=== PATIENT | male | born 1965 | race Caucasian/White ===

== ENCOUNTER 2019-10-19 06:04 | Outpatient (CLI) | payer OTHER, SELFPAY ==
[2019-10-19 16:38] LABS: SARS-CoV-2 RNA PCR Negative
== END 2019-10-19 06:05 | disposition home or self-care (01) ==
LOC: ANHCOVIDDT 06:05
PROVIDERS: PCP Internal Medicine; Visit Provider Internal Medicine Gastroenterology
DX: Z01.818 Encounter for other preprocedural examination (principal); Z11.59 Encounter for screening for other viral diseases
CPT/HCPCS: 87635; C9803; U0003

== ENCOUNTER 2019-10-21 00:25 | Day surgery (SDC) | payer OTHER, SELFPAY ==
[2019-10-17 12:44] VITALS: BMI 22.6
[2019-10-21 06:10] VITALS: BP 118/75; PULSE 98; RESP 16; TEMP 36.8; O2SAT 96
[2019-10-21] MEDS: LACTATED RINGERS 1,000 ML 150 ML IV CONT (06:46)
--- NOTE | 2019-10-21 07:00 | WPDANESEPPF ---
Anes - Initial Pre Proc Eval Procedure: Operation Date: 10/21/19 07:30 Proposed Procedures p Screening Colonoscopy - Adonay Fulton MD Date/Time: 10/21/19 07:00 Surgeon: Adonay Fulton MD Pre Op Diagnosis: Neoplasm Screening Patient Data Age: 53 Gender: M Height: 6 ft 2 in Weight: 77.3 kg Last Vital Signs Temp 36.8 C 10/21/19 06:10 Pulse 98 10/21/19 06:10 Resp 16 10/21/19 06:10 BP 118/75 10/21/19 06:10 Pulse Ox 96 10/21/19 06:10 Allergies Allergy/AdvReac Type Severity Reaction Status Date / Time No Known Allergies Allergy Verified 10/21/19 06:19 Home Medications Medication Instructions Recorded Confirmed Type antiarthritic combination no.2 900 900 mg PO DAILY 06/24/19 10/21/19 History mg tablet flaxseed oil 1,000 mg capsule 1,000 mg PO DAILY 06/24/19 10/21/19 History multivitamin 1 tablet PO DAILY 06/24/19 10/21/19 History plant stanol luz 450 mg tablet 450 mg PO DAILY 06/27/19 10/21/19 History Patient hx anesthesia problems: none Family hx anesthesia problems: none PMFSH Past Medical History Medical History Anxiety Family History Family History Father Hypertension Mother Patient's mother is in good health Social History Social History Smoking status: Never smoker Second hand tobacco smoke exposure: No Alcohol intake: never Anes - Eval Final PreProcedure Day of Procedure 10/21/19 07:00 Patient weight: normal Heart: regular rate and rhythm Lungs: clear to auscultation Airway: Mallampati scale class 1 Neurological: alert and oriented Last oral intake: >/= 8 hours ASA classification: II Emergent: no Anesthetic plan: proceed Anesthesia type and monitoring: general GIVS and standard monitoring Informed Consent: The patient's anesthetic plan and its attendant risks and benefits were discussed with the patient/family/POA. Questions were solicited and answers provided to the satisfaction of the patient/family/POA.
--- NOTE | 2019-10-21 07:21 | PM.HPGS ---
History of Present Illness History of Present Illness Consent: Risks, benefits, and alternatives have been discussed and questions answered. Patient agrees to proceed with procedure. Chief complaint: Neoplasm Screening Narrative: García Rivera is a 53 year old male Who was found have a large sessile polyp of the ascending colon last year. It was [place] that it was incompletely removed in he returns for follow-up. FOR[facility], [facility] Past Medical History Medical History Anxiety Family History Family History Father Hypertension Mother Patient's mother is in good health Social History Social History Smoking status: Never smoker Second hand tobacco smoke exposure: No Alcohol intake: never Meds Home Medications and Allergies Home Medications Medication Instructions Recorded Confirmed Type antiarthritic combination no.2 900 900 mg PO DAILY 06/24/19 10/21/19 History mg tablet flaxseed oil 1,000 mg capsule 1,000 mg PO DAILY 06/24/19 10/21/19 History multivitamin 1 tablet PO DAILY 06/24/19 10/21/19 History plant stanol luz 450 mg tablet 450 mg PO DAILY 06/27/19 10/21/19 History Allergies Allergy/AdvReac Type Severity Reaction Status Date / Time No Known Allergies Allergy Verified 10/21/19 06:19 Vital Signs Vital Signs - 24 hr 10/21/19 06:10 Temperature 36.8 C Pulse Rate 98 Respiratory Rate 16 Blood Pressure 118/75 Pulse Oximetry 96 Exam Resp: Auscultation: clear to auscultation bilaterally Cardio: Rate: regular rate Rhythm: regular rhythm GI: GI Palp: Yes Soft to palpation and No Tenderness to palpation present (GI) Assessment and Plan Assessment and plan (1) Colon cancer screening: Code(s): Z12.11 - Encounter for screening for malignant neoplasm of colon Status: Acute Assessment and Plan: Colonoscopy with possible biopsy or polypectomy or cautery or injection of substances.
[2019-10-21 07:47] VITALS: BP 111/69; PULSE 90; RESP 16; O2SAT 98
[2019-10-21 07:57] VITALS: BP 108/66; PULSE 82; RESP 18; O2SAT 98
[2019-10-21 08:07] VITALS: BP 110/70; PULSE 84; RESP 16; O2SAT 99
== END 2019-10-21 08:15 | disposition home or self-care (01) ==
PROVIDERS: PCP Internal Medicine; Visit Provider Internal Medicine Gastroenterology
PROC: 0DJD8ZZ Inspection of Lower Intestinal Tract, Via Natural or Artificial Opening Endoscopic (ICD-10-PCS; CPT 45378; principal; 2019-10-21 07:30)
DX: Z12.11 Encounter for screening for malignant neoplasm of colon (principal); K57.30 Diverticulosis of large intestine without perforation or abscess without bleeding
CPT/HCPCS: 45378; 87635; C9803; J2704; J7120; U0003

== ENCOUNTER 2024-02-09 19:53 | Emergency (ER) | payer BC, SELFPAY ==
--- NOTE | ~2024-02-09 | CT_ITS ---
EXAMINATION: CT abdomen pelvis w con DATE: 02/09/2024 21:51 INDICATION: Umbilical and epigastric abdominal pain. Nausea and vomiting. TECHNIQUE: Computed tomography (CT) of the abdomen and pelvis was performed with 100 mL Omnipaque 350 intravenous contrast. Automated exposure control and iterative reconstruction technique were employe d. The dose-length product was 505.64 mGy-cm. COMPARISON: None. FINDINGS: The visualized portions of the lung bases demonstrate mild atelectasis. No pleural effusion . The heart size is normal. No pericardial effusion. There is a small sliding hiatal hernia. There is a 5 mm cyst in the liver. The spleen is normal. There is a gallstone in the gallbladder, which is no rmal in size. The pancreas, adrenal glands, and left kidney are normal. There is focal cortical thinn ing of right kidney. The prostate is mildly enlarged. There is diverticulosis of the colon without ev idence of diverticulitis. The appendix is normal. There is wall thickening of loops of mid small amado l. Small bowel is dilated proximal to this area. There are no pathologically enlarged lymph nodes. Th ere is no free intraperitoneal fluid. There is mild thoracic and lumbar spondylosis. There is mild ch ronic height loss of multiple thoracic vertebral bodies. IMPRESSION: 1. Wall thickening of mid small bowel with dilated proximal small bowel loops, consistent with enteri tis and partial obstruction. Reviewed, dictated and finalized at location A. IMPRESSION: 1. Wall thickening of mid small bowel with dilated proximal small bowel loops, consistent with enteritis and partial obstruction.
[2024-02-09 20:01] VITALS: BP 127/80; PULSE 108; RESP 18; TEMP 36.7; O2SAT 98
[2024-02-09 20:59] LABS: Basophils Percent Auto 0.2 % (0.2-1.2); Eosinophils Percent Auto 0.2 % (0-4.4); Hematocrit 46.3 % (42.0-52.0); Hemoglobin 16.2 g/dL (14.0-18.0); Immature Granulocyte Absolute 0.03 K/mm3 (0.00-0.031); Immature Granulocyte Percent A 0.3 % (0-0.5); Lymphocytes Absolute Auto 1.05 K/mm3 (0.9-3.2); Lymphocytes Percent Auto 9.9 % (18.3-44.2); Mean Corpuscular Volume 85.7 fl (80-100); Mean Platelet Volume 10.8 fl (7.4-10.4); Monocytes Absolute Auto 1.1 K/mm3 (0.1-0.6); Monocytes Percent Auto 10.4 % (2.6-8.5); Neutrophils Absolute Auto 8.4 K/mm3 (1.3-6.7); Platelet Count Result 245 k/mm3 (150-375); Red Cell Distribution Width 13.5 % (11.5-14.5); White Blood Count 10.7 K/mm3 (4.5-10.0)
[2024-02-09 21:09] LABS: Alanine Aminotransferase 49 U/L (6-50); Albumin Level 4.8 g/dL (3.5-5.1); Alkaline Phosphatase 100 U/L (38-126); Anion Gap 11 mmol/L (4-12); Aspartate Amino Transferase 33 U/L (17-59); Bilirubin,Total 1.2 mg/dL (0.2-1.3); Blood Urea Nitrogen 17 mg/dL (9-20); Calcium 9.9 mg/dL (8.4-10.2); Carbon Dioxide 33 mmol/L (22-30); Chloride 93 mmol/L (98-107); Estimated CRCL calculation 73 ml/min; Estimated Glomerular Filt Rate > 60; Glucose 117 mg/dL (65-110); Lipase 56 U/L (23-300); Potassium 3.9 mmol/L (3.4-5.0); Sodium 137 mmol/L (137-145)
[2024-02-09] MEDS: SODIUM CHLORIDE 0.9% IV 2,000 ML 999 ML IV CONT (21:24)
[2024-02-09] MEDS: ONDANSETRON INJ 4 MG/2 ML VIAL IV PUSH (21:25)
[2024-02-09] MEDS: HYDROmorphone HCL INJ (*CRX) 1 MG/ML SYR 0.5 MG IV PUSH (21:25)
[2024-02-09] MEDS: FAMOTIDINE 20 MG/2 ML VIAL IV PUSH (21:25)
--- NOTE | 2024-02-09 21:26 | ED.GENADULT ---
HPI - General Adult General Chief complaint: Nausea/Vomiting/Diarrhea Stated complaint: n/v abd pain Time Seen by Provider: 02/09/24 20:51 History of Present Illness HPI narrative: This is a 58-year-old male presenting with 2 days nausea vomiting diarrhea abdominal pain. Patient says the abdominal pain is dull pain that intermittently sharp located between his belly and epigastric area. It is nonradiating 7/10 sitting comfortably goes. He has had pain like this in the past that self resolved he never sought care. No exacerbating relieving factors. It is associated with nausea vomiting and diarrhea. No blood in his diarrhea denies fevers chills chest pain or urinary symptoms Related Data Home Medications Medication Instructions Recorded Confirmed antiarthritic combination no.2 900 900 mg PO DAILY 06/24/19 08/20/23 mg tablet (glucosamine-chondroitin) multivitamin (Multiple Vitamins 1 tablet PO DAILY 06/24/19 08/20/23 tablet) plant stanol luz 450 mg tablet 450 mg PO DAILY 06/27/19 08/20/23 (Cholest Off) calcium 600 mg (1,500 mg)-vit tablet PO 08/20/23 08/20/23 C-vit D3 500 unit-vit E-minerals tablet Allergies Allergy/AdvReac Type Severity Reaction Status Date / Time No Known Allergies Allergy Verified 02/09/24 20:04 [facility] Past Medical History Medical History (Updated 02/09/24 @ 21:29 by Shaheen Davidson MD) Anxiety Family History Family History Father Hypertension Mother Patient's mother is in good health Social History Social History Smoking status: Never smoker Second hand tobacco smoke exposure: No Alcohol intake: never Lack of Transportation: No Lack of Food: Never True Current Housing: I Have Housing Concerned About Future Housing: No Difficulty Paying Gas/Electric Bills: No Difficulty Paying for Meds: No Currently Unemployed: No Education: Bachelor's Degree Difficulty w/ Childcare or Family Care: No Exam Narrative: APPEARANCE: No apparent distress. Head: atraumatic. EYES: EOMI, NOSE: Atraumatic NECK: Trachea midline RESPIRATORY: No increased rate of breathing CTAB CARDIOVASCULAR: RRR, ABDOMINAL: Tenderness to palpation in the umbilical/epigastric area. No guarding no rebound no guarding rebound MUSCULOSKELETAl: No obvious deformities NEURO: Alert. Moving 4/4 extremities SKIN:: Warm, dry. Normal color PSYCHIATRIC: Normal affect Course Vital Signs Vital signs: Vital Signs Temperature 98.1 F 02/09/24 20:01 Pulse Rate 108 H 02/09/24 20:01 Respiratory Rate 18 02/09/24 20:01 Blood Pressure 127/80 02/09/24 20:01 Pulse Oximetry 98 02/09/24 20:01 Oxygen Delivery Room Air 02/09/24 20:01 Temperature 98.1 F 02/09/24 20:01 Pulse Rate 108 H 02/09/24 20:01 Respiratory Rate 18 02/09/24 20:01 Blood Pressure 127/80 02/09/24 20:01 Pulse Oximetry 98 02/09/24 20:01 Oxygen Delivery Room Air 02/09/24 20:01 Medical Decision Making MDM Narrative Medical decision making narrative: -Course: 58-year-old male presenting with abdominal pain, vomiting and diarrhea. CT showed inflammation of the mid small bowel with some possible ileus versus partial small-bowel obstruction. Patient is well-appearing with stable vital signs. His abdominal exam is benign. He was given some Reglan and then was able to tolerate a p.o. challenge. We discussed admission versus discharge the patient is comfortable going home with Reglan and trialing a liquid diet to see if his condition improves. He was given return precautions. -DDX includes but is not limited to: Gastritis, gastroenteritis, gallbladder disease, appendicitis -Co-morbidities complicating care: GERD anxiety -Hx from independent Sources: @ bedside -Independent interpretation of studies: White count 10.7. Metabolic panel unremarkable. Imaging reviewed
[2024-02-09 21:50] LABS: Add Urine Microscopic? YES; Appearance Urine Clear (Clear); Bacteria Urine None Seen /hpf; Bilirubin Urine Negative (Negative); Blood Urine Negative (Negative); Color Urine Dark Yellow (Yellow); Glucose Urine UA Negative (Negative); Ketones Urine 3+ mg/dL (Negative); Leukocyte Esterase Ur Trace LEU/UL (Negative); Nitrate Urine Negative (Negative); Protein Urine 1+ mg/dL (Negative); RBC Urine 0-2 /hpf (0-2); Specific Grav Ur 1.035 (1.001-1.035); Squamous Epithelial Cell Urine None Seen /hpf (Few); WBC Urine 0-5 /hpf (0-3); pH Urine 7.5 (5.0-9.0)
[2024-02-09] MEDS: METOCLOPRAMIDE HCL INJ 10 MG/2 ML VIAL IV PUSH (23:18)
[2024-02-10 01:05] VITALS: BP 121/78; PULSE 92; RESP 15; O2SAT 99
== END 2024-02-10 01:06 | disposition home or self-care (01) ==
PROVIDERS: Emergency Provider Emergency Medicine
DX: K52.9 Noninfective gastroenteritis and colitis, unspecified (principal); K21.9 Gastro-esophageal reflux disease without esophagitis
CPT/HCPCS: 36415; 74177; 80053; 81001; 83690; 85025; 96361; 96374; 96375; 99284; J1170; J2405; J2765; J7030; Q9967